=== PATIENT | male | born 1965 | race Caucasian/White ===

== ENCOUNTER 2025-05-03 11:54 | Emergency (ER) | payer OTHER ==
[~2025-05-03] VITALS: Ht 182.9 cm; Wt 74.8 kg
--- NOTE | 2025-05-03 12:03 | ERN ---
ED Note History of Present Illness Stated Complaint: HTN Chief Complaint: Hypertension Time Seen by MD: 11:56 Dictation: PATIENT IS A 60-YEAR-OLD COMING IN VIA EMS AFTER A HOME HEALTH RN CALLED BECAUSE OF HIS BLOOD PRESSURE. HIS BLOOD PRESSURE WAS 142 OVER 80S, HE HAD NOT TAKEN HIS BLOOD PRESSURE MEDICATIONS THIS MORNING AND THE RN WAS AWARE OF IT. HE SAID THE RN WAS CONCERNED ABOUT A HYPERTENSION UNCONTROLLED AND CALLED EMS. HE STATES ON APPROACH THAT HE HAS NO COMPLAINTS OF AT THIS TIME NO CHEST PAIN NO BACK PAIN NO SOB. NO NAUSEA NO VOMITING NO ARM PAIN NO BACK PAIN NO JAW PAIN. STATES HE HAS NEVER SEEN A [facility]ATION [facility]ISS[facility]. AGAIN STATES HE HAS NOT TAKEN HIS BLOOD PRESSURE MEDICATIONS THIS MORNING. Allergies: Coded Allergies: No Known Drug Allergies (Unverified Allergy, Unknown, 05/03/25) Past Medical History RN Note Reviewed/Agreed w/PFSH: Yes Review of System Dictation CONSTITUTIONAL: NEGATIVE EXCEPT FOR HPI HEAD/FACE: NEGATIVE EXCEPT FOR HPI EENT: NEGATIVE EXCEPT FOR HPI RESPIRATORY: NEGATIVE EXCEPT FOR HPI GASTROINTESTINAL/ABDOMINAL: NEGATIVE EXCEPT FOR HPI GENITOURINARY: NEGATIVE EXCEPT FOR HPI MUSCULOSKELETAL: NEGATIVE EXCEPT FOR HPI INTEGUMENTARY: NEGATIVE EXCEPT FOR HPI NEUROLOGICAL/PSYCH: NEGATIVE EXCEPT FOR HPI HEMATOLOGIC/LYMPHATIC: NEGATIVE EXCEPT FOR HPI ALL SYSTEMS NEGATIVE, EXCEPT NOTED ABOVE. 13 POINT REVIEW OF SYSTEMS ASSESSED AND ALL NEGATIVE EXCEPT FOR ABOVE. Initial Vital Sign VS Vital Signs Date Time Temp Pulse Resp B/P (MAP) Pulse Ox O2 Delivery O2 Flow Rate FiO2 05/03/25 12:01 98.8 108 16 127/82 98 Room Air 0 Physical Exam Dictation VITAL SIGNS REVIEWED GENERAL APPEARANCE: ALERT, ORIENTED X 3, NO ACUTE DISTRESS, WELL DEVELOPED, NOURISHED. 0/10, NO PAIN ON APPROACH. NO COMPLAINTS OF VOICE. HEAD AND FACE: NON-TRAUMATIC. EYES: PERRL, PINK CONJUNCTIVAS, EYELID NO TRAUMA, ANTERIOR CHAMBER WITH ARCUS SENILIS. EARS: PINNAS INTACT AND NO SIGNS OF TRAUMA OR ERYTHEMA EAR CANALS CLEAR AND NO DISCHARGE TM NO ERYTHEMA NOSE: NO DISCHARGE, NO BLEEDING. OROPHARYNX: MOUTH NORMAL, TONGUE PINK, PHARYNX CLEAR,NO ERYTHEMA, TONSILS NO EXUDATES, NO ABSCESSES NOTED, MUCOUS MEMB DEBBIE MOIST NECK: SUPPLE, NON-TENDER, NO THYROMEGALY, NO MASSES, NO JVD, NO BRUITS BREAST:DEFERRED CHEST:NO TENDERNESS, NO CREPITUS, NO PARADOXICAL MOVEMENT, NO RETRACTIONS LUNGS:CLEAR, WELL-VENTILATED, SYMMETRIC, NO RALES, NO WHEEZING, NO RHONCHI, NO S TRIDOR, GOOD BREATH SOUNDS BILATERALLY HEART: REGULAR RATE, REGULAR RHYTHM, NO MURMUR, NO GALLOPS VASCULAR: NO PERIPHERAL EDEMA, ABDOMEN: SOFT, POSITIVE BOWEL SOUNDS, NONDISTENDED, NO GUARDING, NONTENDER, NO REBOUND, NO MASSES NO HEPATOMEGALY, NO SPLENOMEGALY, NO VENTURA'S SIGN, NO HERNIAS. RECTAL: DEFERRED GENITAL: DEFERRED NEUROLOGICAL: NORMAL SPEECH, MOTOR FUNCTION INTACT, SENSORY FUNCTION INTACT MUSCULOSKELETAL: NECK NONTENDER, FULL RANGE OF MOTION, BACK NONTENDER, FULL RANGE OF MOTION, EXTREMITIES: NONTENDER, FULL RANGE OF MOTION SKIN: COLOR PINK, DRY, NO TURGOR, NO RASH, NO LACERATIONS, NO ABRASIONS, NO CONTUSIONS. LYMPHATIC: DEFERRED Results (Laboratory/Radiology) Laboratory/Radiology Laboratory Tests Test 05/03/25 12:35 White Blood Count 5.1 K/uL (4.8-10.8) Red Blood Count 4.25 MIL/uL (4.50-6.20) L Hemoglobin 13.7 g/dL (14.0-18.0) L Hematocrit 38.8 % (42-54) L Mean Corpuscular Volume 91.3 fL (79-99) Mean Corpuscular Hemoglobin 32.2 pg (27.0-33.0) Mean Corpuscular Hemoglobin Concent 35.3 g/dL (32.0-36.0) Red Cell Distribution Width 12.3 % (11.0-15.5) Platelet Count 113 K/uL (130-400) L Mean Platelet Volume 8.3 fL (7.5-10.5) Immature Granulocyte % (Auto) 0.6 % (0-1) Neutrophils (%) (Auto) 73.4 % (40.0-77.0) Lymphocytes (%) (Auto) 11.6 % (21.0-51.0) L Monocytes (%) (Auto) 12.8 % (3.0-13.0) Eosinophils (%) (Auto) 0.4 % (0.0-8.0) Basophils (%) (Auto) 1.2 % (0.0-5.0) Neutrophils # (Auto) 3.7 K/uL (1.8-7.7) Lymphocytes # (Auto) 0.6 K/uL (1.0-4.8) L Monocytes # (Auto) 0.7 K/uL (0.1-1.0) Eosinophils # (Auto) 0.02 K/uL (0.00-0.70) Basophils # (Auto) 0.06 K/uL (0.00-0.20) Absolute Immature Granulocyte (auto 0.03 K/uL (0-1) Nucleated Red Blood Cells 0.0 % (0.0-0.19) Sodium Level 131 mmol/L (136-145) L Potassium Level 4.1 mmol/L (3.5-5.1) Chloride Level 93 mmol/L (101-111) L Carbon Dioxide Level 24 mmol/L (21-32) Blood Urea Nitrogen 3 mg/dL (7-18) L Creatinine 0.6 mg/dL (0.5-1.3) Glomerular Filtration Rate Calc 109 mL/min (>90) Random Glucose 111 mg/dL (70-105) H Total Calcium 8.9 mg/dL (8.5-10.1) Magnesium Level 1.60 mg/dL (1.80-2.40) L Troponin I High Sensitivity 6 ng/L (4-75) QT-Ioy-O-Type Natriuretic Peptide 76 pg/mL (0-125) 1245/CHEST X-RAY NEGATIVE Labs Reviewed?: Yes EKG: (+) NSR EKG Comment: EKG NORMAL SINUS RHYTHM/HEART RATE 99/AXIS NORMAL/NO ECTOPY ED Course ED Course Orders Procedure Category Date Status Time Cbc With Differential LAB 05/03/25 Complete 12:00 Chest 1vw RAD 05/03/25 Resulted 12:00 12 Lead Ekg Tracing- EKG 05/03/25 Complete Technical 12:00 Magnesium LAB 05/03/25 Complete 12:00 Troponin I High LAB 05/03/25 Complete Sensitivity 12:00 Basic Metabolic Panel LAB 05/03/25 Complete 12:00 Probnp LAB 05/03/25 Complete 12:00 Magnesium 2gm Premix PHA 05/03/25 In Process 50ml (Magnesium 2gm 13:30 Magnesium Oxide PHA 05/03/25 Verified (Mag-Ox) 13:30 Current Medications Medications (Trade) Dose Ordered Sig/Lucy Route PRN Reason Start Time Stop Time Status Last Admin Dose Admin Magnesium Sulfate 50 ml @ 0 mls/hr PROTOCOL IV 05/03/25 13:30 06/02/25 13:29 Vital Signs Date Time Temp Pulse Resp B/P (MAP) Pulse Ox O2 Delivery O2 Flow Rate FiO2 05/03/25 12:01 98.8 108 16 127/82 98 Room Air 0 1310/PATIENT HAS MAGNESIUM LEVEL 1.6. WE WILL BE GIVEN MAX OXIDE 400 MG. DISCHARGED HOME WITH NORMAL BLOOD PRESSURE HEART RATE IS CONTROLLED. TOLD TO FOLLOW UP WITH HIS PRIMARY CARE DOCTOR AND CONTINUE ALL HIS MEDS AND TREATMENTS AT HOME. Medical Decision Making MDM MEDICAL DISCHARGE MAKING BASED ON CARDIAC WORKUP FOR HYPERTENSION. EKG AND TROPONIN NEGATIVE SODIUM 131, MAGNESIUM 1.6 AND WAS REPLACED BY MOUTH. PATIENT DISCHARGED HOME TO FOLLOW UP UP WITH THE [facility] CONTINUE ALL MEDS AND TREATMENTS AT HOME. DISCHARGED HOME WITH MAGNESIUM REPLACEMENT FOR THE NEXT 10 DAYS. DX & DISP Disposition: Discharge Departure Impression: Primary Impression: Hypomagnesemia Additional Impressions: Hyponatremia, Hypochloremia Condition: Stable Scripts Magnesium Oxide/Mag Aa Chelate (Magnesium 300 mg Capsule) 300 Mg Capsule 300 MG PO DAILY for 10 Days, #10 CAP 0 Refills Prov: FREDDIE ANGULO [facility] [employer] 05/03/25 Additional Instructions: FOLLOW-UP WITH PRIMARY CARE PROVIDER IN 1 TO 2 DAYS. TAKE MEDICATIONS DIR ECTED HERE IN THE EMERGENCY ROOM. OKAY TO CONTINUE HOME MEDICATIONS UNLESS OTHERWISE DISCUSSED DURING YOUR VISIT IN THE EMERGENCY ROOM TODAY. RETURN TO YOUR NEAREST EMERGENCY ROOM IF SYMPTOMS WORSEN OR IF THERE IS NO IMPROVEMENT. CALL 911 IF YOU NEED IMMEDIATE ASSISTANCE. TAKE TYLENOL OR MOTRIN [id number] NEEDED AND IF NO CONTRAINDICATIONS ARE PRESENT. INCREASE ORAL HYDRATION. A WOUND CULTURE OR URINE CULTURE WAS ORDERED HERE IN THE EMERGENCY ROOM DEPARTMENT PLEASE FOLLOW-UP WITH PRIMARY CARE PROVIDER AND ADVISE THEM TO GET REPEAT PORTS FROM OUR FACILITY. IF YOU HAD ANY JOANN WRAP/SPLINTS THAT WERE APPLIED HERE, PLEASE DO NOT REMOVE THEM UNTIL YOU SEE YOUR PRIMARY CARE OR SPECIALTY. TAKE MAGNESIUM DIRECTED STARTING TOMORROW UNTIL GONE. CONTINUE ALL YOUR MEDICATIONS AND TREATMENTS AT HOME. FOLLOW UP WITH YOUR DOCTOR AT THE [facility] FOR ANY ADDITIONAL NEED Time of Disposition: 13:13 I have reviewed the case, and I agree with, Diagnosis and Plan FREDDIE ANGULO NP May 03, 2025 12:03
[2025-05-03 12:39] LABS: BASOPHILS # (AUTO) 0.06 K/uL (0.00-0.20); BASOPHILS % (AUTO) 1.2 % (0.0-5.0); EOSINOPHILS # (AUTO) 0.02 K/uL (0.00-0.70); EOSINOPHILS % (AUTO) 0.4 % (0.0-8.0); HEMATOCRIT 38.8 % (42-54); IMMATURE GRANULOCYTE ABSOLUTE 0.03 K/uL (0-1); LYMPHOCYTES # (AUTO) 0.6 K/uL (1.0-4.8); LYMPHOCYTES % (AUTO) 11.6 % (21.0-51.0); MEAN CORPUSCULAR HEMOGLOBIN 32.2 pg (27.0-33.0); MEAN CORPUSCULAR HGB CONC 35.3 g/dL (32.0-36.0); MEAN CORPUSCULAR VOLUME 91.3 fL (79-99); MONOCYTES # (AUTO) 0.7 K/uL (0.1-1.0); MONOCYTES % (AUTO) 12.8 % (3.0-13.0); NEUTROPHILS # (AUTO) 3.7 K/uL (1.8-7.7); NEUTROPHILS % (AUTO) 73.4 % (40.0-77.0); PLATELET COUNT (AUTO) 113 K/uL (130-400); RED BLOOD CELL COUNT(AUTO) 4.25 MIL/uL (4.50-6.20); RED CELL DISTRIBUTION WIDTH 12.3 % (11.0-15.5); WHITE BLOOD COUNT (AUTO) 5.1 K/uL (4.8-10.8)
--- NOTE | 2025-05-03 12:39 | EKG ---
[facility] Test Date: 2025-05-03 Test Time: 12:05:29 Pat Name: FRANKIE DILLARD Department: ED Room: Gender: M Respiratory Care Technician: [id number] : 1965 Requested By: FREDDIE ANGULO Order Number: [id number] Reading MD: Jaylen Thomas Measurements Intervals Gem Rate: 99 P: 49 DE: 151 QRS: -15 QRSD: 80 T: 35 QT: 339 QTc: 435 Interpretive Statements Sinus rhythm Low voltage, precordial leads No previous ECG available for comparison Electronically Signed On 05-03-2025 15:12:31 CDT by Jaylen Thomas Please click the below link to view image of tracing.
[2025-05-03 12:45] LABS: CREATININE 0.6 mg/dL (0.5-1.3); POTASSIUM 4.1 mmol/L (3.5-5.1)
[2025-05-03 12:57] LABS: MAGNESIUM 1.6 mg/dL (1.80-2.40)
--- NOTE | 2025-05-03 13:00 | HMCIMG ---
CHEST 1VW HISTORY: Chest pain COMPARISON: None FINDINGS: A frontal projection of the chest was obtained. No acute pulmonary infiltrates is seen. The heart is normal in size. Prominent interstitial markings are seen. No evidence of aortic calcification is seen. IMPRESSION: 1. No acute pulmonary infiltrate is seen.
[2025-05-03] MEDS ORDERED: MAGN300C PO (13:13)
[2025-05-03] MEDS: MAGNESIUM OXIDE 400 MG TABLET PO ONE (13:24)
[2025-05-03] MEDS ORDERED: MAGNESIUM 2GM PREMIX 50ML 50 ML IV SCH (13:30)
[2025-05-03 13:52] VITALS: BP 130/86; PULSE 105; RESP 20; TEMP 97.6; O2SAT 98
== END 2025-05-03 14:11 | disposition home or self-care (01) ==
LOC: EDH 11:54
DX: E83.42 Hypomagnesemia (principal); E87.1 Hypo-osmolality and hyponatremia; E87.8 Other disorders of electrolyte and fluid balance, not elsewhere classified; I10 Essential (primary) hypertension
CPT/HCPCS: 36415; 71045; 80048; 83735; 83880; 84484; 85025; 93005; 99285